=== PATIENT | male | born 1995 | race Caucasian/White ===

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

== ENCOUNTER 2018-08-01 10:41 | Emergency (ER) | payer OTHER ==
[2018-08-01 10:50] VITALS: BP 133/83
--- NOTE | 2018-08-01 11:29 | EDPHY ---
General Time Seen by Provider: 08/01/18 11:04 Narrative: CLINICAL IMPRESSION: Atraumatic, reproducible, musculoskeletal back pain ASSESSMENT/PLAN: 23-year-old male presents to the emergency department with several weeks of reproducible left rhomboid and paraspinal thoracic back pain. He has not taken any NSAIDs or other therapies for this. He has no midline pain, fever, history of trauma or spinal cord procedure including SI, bowel or bladder incontinence, saddle anesthesia, paresthesias or weakness to the arms, or numbness to the trunk. No chest pain, pleuritic discomfort or shortness of breath. Chest x- ray shows no evidence of pulmonary mass, pneumonia, pneumothorax, compression deformity of the thoracic spine, lytic lesions, or other acute cardiopulmonary abnormality. Pain is reproducible to palpation and range of motion. I suspect this is musculoskeletal in origin. I have advised a trial of NSAIDs and muscle relaxers. PCP follow-up encouraged, warning signs return to ED sooner outlined in discharge. DIFFERENTIAL DX: Differential includes but not limited to musculoskeletal back pain, lytic lesion, thoracic compression fracture, spontaneous pneumothorax, costochondritis , PE ED PROCEDURES: See lab and/or imaging results below ED COURSE: X-rays read by Radiology, no acute fracture or cardiopulmonary abnormality. 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 Patient reports he has been lifting more and actually lifting and warming up his back muscles do help the pain. No traumatic injury or fall. He tried a friend's muscle relaxers which also helped slightly. No complaints of chest pain, pleuritic discomfort, shortness of breath. He has not traveled outside the [place] Recently has no personal history of DVT or PE. No reports of palpitations. No asymmetric leg swelling. No pulmonary or cardiac history. He has not taken any NSAIDs. PAST MEDICAL HISTORY: None reported See triage summary and nurse notes for addition applicable history Pertinent Past Surgical History: None reported Family History: No history of DVT or PE Social History: Nonsmoker denies alcohol, [employer] student. REVIEW OF SYSTEMS: A full 10 point review of systems was negative except for those mentioned in HPI. PHYSICAL EXAM: General Appearance: Alert, oriented, appropriate, cooperative, NAD, well hydrated, non-toxic appearing, VSS, no hypoxia. Respiratory: There are no retractions, lungs are clear to auscultation. Cardiac: Regular rate and rhythm, no murmurs or gallops. Musculoskeletal: Reproducible pain to palpation along the left rhomboid muscle , subscapularis region and paraspinal muscles of the thoracic spine. No midline pain. Pain exacerbated by rotational movement and forward bending. No anterior chest wall pain and no pleuritic discomfort. Gastrointestinal: Abdomen is soft, nontender, bowel sounds normal, negative Rubio sign, no masses/hernia, no rigidity, guarding or focal peritoneal findings. Skin: Warm, dry, no rashes, no nodules on palpation. MEDICAL DECISION MAKING: Patient was seen independently. Secondary supervising physician at time of evaluation was: Dr. Gonsales . Diagnosis: Musculoskeletal thoracic back pain. New, requires workup Summary: See Assessment and Plan for summary of ED visit Independent visualization of images, tracing, or specimens: Yes. Patient Progress: Improved, stable for discharge. - History Smoking Status: Never smoked - Objective Vital Signs: Initial Vital Signs Temperature (C) 36.5 C 08/01/18 10:48 Heart Rate 53 L 08/01/18 10:48 Respiratory Rate 16 08/01/18 10:48 Blood Pressure 133/83 H 08/01/18 10:48 O2 Sat (%) 98 08/01/18 10:48 O2 Delivery Mode Room Air Allergies/Adverse Reactions: No Known Allergies Allergy (Verified 08/01/18 10:47) Home Medications: Medication Instructions Recorded Cyclobenzaprine [Flexeril] 10 mg PO TID #15 tab 08/01/18 Departure - Departure Disposition: Home, Routine, Self-Care Clinical Impression: Back pain Condition: Fair Instructions: Back Pain (ED) Additional Instructions: DISCHARGE INSTRUCTIONS FROM YOUR DOCTOR Thank you for visiting our emergency department today. You were treated by a physician business office assistant today and your case was reviewed with our ED Attending physician. Please keep in mind that discharge from the emergency department does not mean that there is nothing wrong - it simply means that we have not identified an emergency condition that requires further evaluation or treatment in the hospital. You should always plan to follow up with primary care for re- evaluation of your condition in the next 2-3 days. If you have been referred to a specialist, please call as soon as possible (today or tomorrow) to schedule your follow up appointment at the appropriate time. X-RAYS WERE READ BY THE RADIOLOGIST. NO EVIDENCE OF THORACIC SPINE FRACTURE, COMPRESSION DEFORMITY, RIB FRACTURE, COLLAPSE OF THE LUNG, OR ABNORMAL CARDIAC OR LUNG FINDINGS. THIS IS MOST LIKELY A MUSCULOSKELETAL INJURY. A PRESCRIPTION FOR MUSCLE RELAXERS WAS PROVIDED TO USE IF NEEDED. I WOULD ALSO RECOMMEND TRYING AN NSAID LIKE ALEVE OR IBUPROFEN FOR 3-5 DAYS WITH FOOD AND A LARGE GLASS OF WATER. AVOID ACTIVITIES THAT EXACERBATE PAIN. RETURN TO THE EMERGENCY DEPARTMENT IMMEDIATELY FOR CHEST PAIN, SHORTNESS OF BREATH, PALPITATIONS, FAINTING EPISODES, SEVERE BACK PAIN, FEVERS GREATER THAN 100.4, OR ANY OTHER CONCERN. People present with illnesses and injuries in different ways, and it is always possible that we have missed something. You may always return for re-evaluation if symptoms worsen or if they are not improving or if you develop new/different symptoms. Again, thank you for choosing our emergency department. We hope that you feel better. Referrals: NONE *PRIMARY CARE P,. [Primary Care Provider] - As per Instructions [facility] [Clinic] - 1-2 days without fail Prescriptions: Cyclobenzaprine [Flexeril] 10 mg PO TID #15 tab
== END 2018-08-01 12:19 | disposition home or self-care (01) ==
DX: M79.18 Myalgia, other site (principal)